=== PATIENT | female | born 1950 | race Caucasian/White ===

== ENCOUNTER → 2019-04-07 | Outpatient (CLI) | payer MEDICARE ==
[~2019-04-07] MED LIST: CATHETER FLUSH 10 ML SYR IV PRN; HOLD METFORMIN - RECEIVED CONTRAST 20 ML VIAL IV SCH; IOHEXOL 350 MG/ML 100 ML (OMNIPAQUE 350) VIAL IV ONE; NS 100 ML (IVPB) BAG IV ONE
--- NOTE | 2019-04-07 12:24 | Diagnostic Imaging Report ---
PROCEDURE: CT neck soft tissue with contrast. TECHNIQUE: Multiple contiguous axial images were obtained through the neck after the administration of contrast. Auto Exposure Controls were utilized during the CT exam to meet ALARA standards for radiation dose reduction. INDICATION: Vocal cord paralysis. COMPARISON: No prior studies are available for comparison. FINDINGS: The visualized intracranial structures are unremarkable. The posterior nasopharynx and oropharynx are unremarkable. Parapharyngeal fat planes are preserved. The epiglottis and larynx are unremarkable. No thyroid mass is detected. Upper mediastinum is unremarkable. Bilateral submandibular and parotid glands appear to be symmetric bilaterally. No cervical lymphadenopathy is identified. IMPRESSION: Unremarkable CT soft tissue neck study. Dictated by: Dictated on workstation # [id number]
== END ==
LOC: RAD FS 11:13
PROVIDERS: ATTEND Otolaryngology
DX: J38.01 Paralysis of vocal cords and larynx, unilateral (principal)
CPT/HCPCS: 70491